=== PATIENT | male | born 1990 | race Two or more races ===

== ENCOUNTER 2021-10-30 11:04 | Emergency (ER) | payer OTHER ==
[~2021-10-30] VITALS: Ht 185.4 cm; Wt 120.6 kg
[2021-10-30] MEDS ORDERED: FLUORESCEIN OPHTH TEST STRIP. OD ONE (11:45)
[2021-10-30] MEDS ORDERED: TETRACAINE 0.5% OPHTH SOLUTION 4ML BOTTLE. OD ONE (11:45)
--- NOTE | 2021-10-30 11:59 | PHYS DOC ---
Past Medical History Past Medical History: No Pertinent History Past Surgical History: No Surgical History General Adult EDM: Chief Complaint: EYE PROBLEMS HPI: HPI: Patient is a 31-year-old male that presents today with left eye pain and irritation. Patient states that on Thursday he was working and was cleaning a machine, he was using K foam self foaming cleanser, and some of that splashed into his right eye he says he cleansed his eye after the incident, and continue to work. He said over the last couple of days his eye has become more blurry and more painful, he states that he went to work yesterday and his boss gave him a sheet on it cleanser that was used, and told him to follow-up with a doctor, he said he did not come yesterday because he does not speak [place] and the person that translates for him normal he was at work until late last night. He presents today for further evaluation. Patient does not know when his last tetanus shot was, according to the entertainment director at the bedside he does not normally wear contacts or glasses. Review of Systems: Review of Systems: Constitutional: Denies fever or chills. [] Eyes: Right eye pain and visual changes denies change in visual acuity. [] HENT: Denies nasal congestion or sore throat. [] Respiratory: Denies cough or shortness of breath. [] Cardiovascular: Denies chest pain or edema. [] GI: Denies abdominal pain, nausea, vomiting, bloody stools or diarrhea. [] : Denies dysuria. [] Musculoskeletal: Denies back pain or joint pain. [] Integument: Denies rash. [] Neurologic: Denies headache, focal weakness or sensory changes. [] Endocrine: Denies polyuria or polydipsia. [] Lymphatic: Denies swollen glands. [] Psychiatric: Denies depression or anxiety. [] Heart Score: C/O Chest Pain: No Risk Factors: Risk Factors: DM, Current or recent (<one month) smoker, HTN, HLP, family history of CAD, obesity. Risk Scores: Score 0 - 3: 2.5% MACE over next 6 weeks - Discharge Home Score 4 - 6: 20.3% MACE over next 6 weeks - Admit for Clinical Observation Score 7 - 10: 72.7% MACE over next 6 weeks - Early Invasive Strategies Current Medications: Current Medications Medications (Trade) Dose Ordered Sig/Erick Start Time Stop Time Status Last Admin Dose Admin Fluorescein Sodium (Ful-Karla) 1 strip 1X ONCE 10/30/21 11:45 10/30/21 11:46 DC 10/30/21 11:44 1 STRIP Tetracaine HCl (Tetracaine) 1 drop 1X ONCE 10/30/21 11:45 10/30/21 11:46 DC 10/30/21 11:44 1 DROP Allergies: Allergies: Allergies Coded Allergies Type Severity Reaction Last Updated Verified No Known Drug Allergies 10/30/21 No Physical Exam: PE: Constitutional: Well developed, well nourished, no acute distress, non-toxic appearance. [] HENT: Normocephalic, atraumatic, bilateral external ears normal, oropharynx moist, no oral exudates, nose normal. [] Eyes: Left eye PERRLA, EOMI, conjunctiva normal, no discharge, right eye conjunctive a is red lens appears cloudy, pupil is equal and reactive to light no discharge noted Neck: Normal range of motion, no tenderness, supple, no stridor. [] Cardiovascular:Heart rate regular rhythm, no murmur [] Lungs & Thorax: Bilateral breath sounds clear to auscultation [] Abdomen: Bowel sounds normal, soft, no tenderness, no masses, no pulsatile masses. [] Skin: Warm, dry, no erythema, no rash. [] Back: No tenderness, no CVA tenderness. [] Extremities: No tenderness, no cyanosis, no clubbing, ROM intact, no edema. [] Neurologic: Alert and oriented X 3, normal motor function, normal sensory function, no focal deficits noted. [] Psychologic: Affect normal, judgement normal, mood normal. [] Current Patient Data: Vital Signs: Vital Signs Date Time Temp Pulse Resp B/P (MAP) Pulse Ox O2 Delivery O2 Flow Rate FiO2 10/30/21 11:08 98.4 18 149/106 (120) 98 Room Air 98.4 EKG: EKG: [] Radiology/Procedures: Radiology/Procedures: Indication: Chemical exposure to right eye Procedure: The patient was placed in the appropriate position. Anesthesia of tetracaine 0.5% 2 drops was instilled into the right eye, fluorescein staining was done, Frost lamp examination shows a highlighted area at the 3 o'clock position of the eye, lenses cloudy. The patient tolerated the procedure well Course & Med Decision Making: Course & Med Decision Making Pertinent Labs and Imaging studies reviewed. (See chart for details) Visual acuity right eye 20/50, left eye 20/15 both eyes are 20/15 12:[address] Duggan with ophthalmology he recommended since the patient is 4 to 5 days out from the initial injury, he recommended erythromycin ointment 3 times daily for 5 days, artificial tears throughout the day to help with increasing moisture in the eye, follow-up with an director of analytical development, your [employer] agency or Dr. Duggan within 1 week and to return for increased redness increase light sensitivity or sensitivity to the eye, change in vision and increased pain. Did discuss this with the family member at the bedside and the patient and they are agreeable with the plan of care. Dragon Disclaimer: Dragon Disclaimer: This electronic medical record was generated, in whole or in part, using a voice recognition dictation system. Departure Departure Impression: Primary Impression: Chemical exposure of eye Disposition: HOME / SELF CARE / HOMELESS Condition: STABLE Referrals: RAI DUGGAN MD Patient Instructions: Conjunctivitis, Chemical Additional Instructions: Erythromycin ointment instill quarter inch to the right eye 3 times daily for 5 days Artificial tears 4-5 times daily 2 drops to help with eye lubrication can use more if you if your eyes feel dry Follow-up with Dr. Duggan or your director of analytical development in 5 to 7 days Follow-up with your [employer] agency [place] Tylenol and/or ibuprofen as needed for pain Wear eye protection when working with chemicals to help prevent any other further eye injuries Return to the emergency department for increased redness, increased sensitivity of the eye, worsening vision and increased pain. Scripts Ibuprofen (IBUPROFEN) 600 Mg Tablet 600 MG PO PRN Q6HRS PRN for INFLAMMATION, #20 TAB Prov: KARMA JAMES SAND MILLER 10/30/21 Erythromycin Base (Erythromycin) 1 Gm Oint...g. 0.25 INCH OD TID for 5 Days, #1 MISC 1 Refill Prov: KARMA JAMES SAND MILLER 10/30/21 KARMA JAMES SAND MILLER Oct 30, 2021 11:59
[2021-10-30] MEDS ORDERED: IBUP-1007 PO (12:36)
[2021-10-30] MEDS ORDERED: ERYT1OIN3 OD (12:36)
[2021-10-30 12:45] VITALS: BP 159/101
[2021-10-30] MEDS ORDERED: DIPHTH,PERTUSS(ACELL),TET TOX 0.5 ML DISP.SYRIN. VAX IM ONE (13:00)
== END 2021-10-30 13:05 | disposition home or self-care (01) ==
LOC: ER 11:04
DX: Z77.098 Contact with and (suspected) exposure to other hazardous, chiefly nonmedicinal, chemicals (principal); H57.12 Ocular pain, left eye; H53.8 Other visual disturbances
CPT/HCPCS: 90471; 90715; 99283